=== PATIENT | male | born 1935 | race Caucasian/White ===

== ENCOUNTER 2019-08-04 07:03 | Observation (INO) | payer MEDICARE ==
[~2019-08-04] VITALS: Ht 180.3 cm; Wt 89.3 kg
[2019-08-04] MEDS ORDERED: SODIUM CHLORIDE FLUSH 10ML SYR IVF ONE (08:00)
[2019-08-04] MEDS ORDERED: ONDANSETRON 2MG/ML, 2ML IVPush ONE (08:00)
[2019-08-04] MEDS ORDERED: MORPHINE SULFATE 4 MG/ML, 1ML IVPush PRN (08:00)
[2019-08-04] MEDS ORDERED: ONDANSETRON 2MG/ML, 2ML ONE ×2 (08:03→12:34)
[2019-08-04] MEDS ORDERED: MORPHINE SULFATE 4 MG/ML, 1ML ONE (08:03)
[2019-08-04 08:16] LABS: BASOPHILS # (AUTO) 0.01 x10^3/uL (0-0.1); BASOPHILS % (AUTO) 0 % (0-1); EOSINOPHILS % (AUTO) 0 % (1-7); LYMPHOCYTES # (AUTO) 0.56 x10^3/uL (1-3.4); LYMPHOCYTES % (AUTO) 6 % (22-44); MD NO; MEAN CORPUSCULAR HEMOGLOBIN 33.2 pg (27.5-34.5); MEAN CORPUSCULAR HGB CONC 33.4 g/dL (33.2-36.2); MEAN CORPUSCULAR VOLUME 99.4 fL (81-97); MEAN PLATELET VOLUME 10.1 fL (7.4-10.4); MONOCYTES # (AUTO) 0.47 x10^3/uL (0.2-0.8); MONOCYTES % (AUTO) 5 % (2-9); NEUTROPHILS # (AUTO) 8.66 x10^3/uL (1.8-6.8); NEUTROPHILS % (AUTO) 89 % (42-75); PLATELET COUNT 172 x10^3/uL (130-400); RED CELL DISTRIBUTION WIDTH 13.9 % (9.4-14.8)
[2019-08-04 08:26] LABS: ANION GAP 8 mmol/L (5-15); CHLORIDE 107 mmol/L (98-107); CREATININE 1.34 mg/dL (0.7-1.3)
[2019-08-04] MEDS ORDERED: SODIUM CHLORIDE 0.9% 1,000ML IVBOLUS ONE (08:30)
--- NOTE | 2019-08-04 09:13 | NUR ---
PT RESTING AT THIS TIME STILL REPORTS UNABLE TO URINATE HAS BEEN TO IMAGING AND RETURNED
--- NOTE | 2019-08-04 10:24 | NUR ---
continues to attempt urination unable to at this time resting comfortable
--- NOTE | 2019-08-04 11:10 | NUR ---
to go to or at 1200
[2019-08-04 11:12] LABS: MICROSCOPIC NOT IND
--- NOTE | 2019-08-04 11:32 | NUR ---
REPORT TO OR
[2019-08-04] MEDS ORDERED: FENTANYL PF 250 MCG/5ML ONE (11:34)
[2019-08-04] MEDS ORDERED: HYDROmorphone 2 MG/ML, 1ML IVPush PRN (12:30)
[2019-08-04] MEDS ORDERED: METOPROLOL 1 MG/ML, 5ML IV PRN (12:30)
[2019-08-04] MEDS ORDERED: ALBUTEROL/IPRATROPIUM 2.5MG/0.5MG, 3 ML NPPB PRN (12:30)
[2019-08-04] MEDS ORDERED: hydrALAzine 20 MG/ML, 1ML IV PRN (12:30)
[2019-08-04] MEDS ORDERED: OXYcodone 5 MG/5 ML ORAL.SOL UDC PO PRN (12:30)
[2019-08-04] MEDS ORDERED: MIDAZOLAM 1 MG/ML, 2ML IV PRN (12:30)
[2019-08-04] MEDS ORDERED: PROMETHAZINE 25 MG/ML, 1ML IV PRN (12:30)
[2019-08-04] MEDS ORDERED: ACETAMINOPHEN 325 MG TABLET PO PRN (12:30)
[2019-08-04] MEDS ORDERED: CEFAZOLIN 1,000 MG ONE (12:34)
[2019-08-04] MEDS ORDERED: SUCCINYLCHOLINE 20 MG/ML, 10ML ONE (12:34)
[2019-08-04] MEDS ORDERED: DEXAMETHASONE 4 MG/ML, 1ML ONE (12:34)
[2019-08-04] MEDS ORDERED: PROPOFOL 10 MG/ML, 20ML ONE (12:34)
[2019-08-04] MEDS ORDERED: hydrALAzine 20 MG/ML, 1ML ONE (14:03)
[2019-08-04] MEDS: FENTANYL PF 100 MCG/2ML IV PRN ×3 (14:20→14:43)
[2019-08-04] MEDS ORDERED: FENTANYL PF 100 MCG/2ML ONE (14:32)
[2019-08-04] MEDS ORDERED: OXYcodone 5 MG/5 ML ORAL.SOL UDC ONE (14:42)
[2019-08-04 17:39] VITALS: BP 124/72
[2019-08-14] MEDS ORDERED: FAMO40TA4 PO (02:22)
[2019-08-14] MEDS ORDERED: LEVO25TA4 PO (02:22)
[2019-08-14] MEDS ORDERED: ALLO100T30 PO (02:22)
[2019-08-14] MEDS ORDERED: AMLO5TAB10 PO (02:22)
[2019-08-15] MEDS ORDERED: CEFD300C37 PO (11:31)
== END 2019-08-04 18:04 | disposition home or self-care (01) ==
LOC: ED 09:24 → EDIP 10:43 → 4NE 14:40
PROVIDERS: ADMIT Urology; ATTEND Urology
DX: N13.1 Hydronephrosis with ureteral stricture, not elsewhere classified (principal); N13.2 Hydronephrosis with renal and ureteral calculous obstruction; M10.9 Gout, unspecified; I10 Essential (primary) hypertension; E03.9 Hypothyroidism, unspecified; R31.0 Gross hematuria; Z87.891 Personal history of nicotine dependence
CPT/HCPCS: 36415; 52356; 74018; 74176; 76000; 80048; 81003; 82040; 85025; 96374; 96375; 99284; C1758; C1769; C2617; G0378; J0330; J0360; J0690; J1100; J2270; J2405; J2704; J3010; J7030

== ENCOUNTER 2020-05-28 09:45 | Outpatient (CLI) | payer MEDICARE ==
[~2020-05-28 09:45] MED LIST: ALLO100T30 PO; AMLO-210 PO; CEFD300C37 PO; FAMO40TA4 PO; LEVO25TA4 PO
[2020-05-28] MEDS ORDERED: OMNIPAQUE 350 MG/ML, 100ML BOTTLE ONE (10:30)
== END 2020-05-28 23:59 | disposition home or self-care (01) ==
LOC: RAD 09:45
PROVIDERS: ATTEND Urology
DX: C61 Malignant neoplasm of prostate (principal); K40.90 Unilateral inguinal hernia, without obstruction or gangrene, not specified as recurrent; K57.30 Diverticulosis of large intestine without perforation or abscess without bleeding; N28.1 Cyst of kidney, acquired; D35.02 Benign neoplasm of left adrenal gland; N32.89 Other specified disorders of bladder
CPT/HCPCS: 74177; 78306; A9503; Q9967

== ENCOUNTER 2020-08-26 14:44 | Emergency (ER) | payer MEDICARE ==
[~2020-08-26] VITALS: Ht 180.3 cm; Wt 91.6 kg
[2020-08-26 15:12] VITALS: BP 151/84
== END 2020-08-26 17:22 | disposition home or self-care (01) ==
LOC: ED 17:15
DX: B35.1 Tinea unguium (principal); L03.032 Cellulitis of left toe; M79.675 Pain in left toe(s); M79.89 Other specified soft tissue disorders; I10 Essential (primary) hypertension; E87.6 Hypokalemia; Z85.46 Personal history of malignant neoplasm of prostate
CPT/HCPCS: 99283